=== PATIENT | female | born 1980 | race Caucasian/White ===

== ENCOUNTER 2017-02-07 16:37 | Inpatient (IN) | payer OTHER ==
[2017-02-07] MEDS ORDERED: OLIVE OIL 118 ML BTL MISC PRN (17:39)
[2017-02-07] MEDS ORDERED: LR 1,000 ML IV PRN (17:39)
[2017-02-07] MEDS ORDERED: EPSOM SALT 454 GM TP PRN (17:39)
[2017-02-07] MEDS ORDERED: OXYTOCIN/RINGERS LACTATE 1,000 ML IV PRN (17:39)
[2017-02-07] MEDS ORDERED: TERBUTALINE SULFATE 1 MG/ML VIAL IV PRN (17:39)
[2017-02-07 18:07] LABS: % IMMATURE GRANULYOCYTES 0.9 % (0.0-1.1); ABSOLUTE IMMATURE GRANULOCYTES 0.08 10^3/uL (0.00-0.10); ADD DIFF? NO; ADD MORPH? NO; ADD SCAN? NO; ATYPICAL LYMPHOCYTE FLAG 0 (0-99); FRAGMENT RBC FLAG 0 (0-99); HEMATOCRIT 38.5 % (38.0-47.0); HEMOGLOBIN 13.3 g/dL (12.6-16.3); LEFT SHIFT FLG 0 (0-99); LIPEMIA HEMOLYSIS FLAG 90 (0-99); MEAN CELL HEMOGLOBIN 31.1 pg (27.9-34.1); MEAN CELL HEMOGLOBIN CONCENTR. 34.5 g/dL (32.4-36.7); MEAN CELL VOLUME 90.2 fL (81.5-99.8); MEAN PLATELET VOLUME 9.7 fL (8.7-11.7); PLATELET CLUMPS FLAG 0 (0-99); PLATELET COUNT 240 10^3/uL (150-400); RED BLOOD CELL COUNT 4.27 10^6/uL (4.18-5.33); RED CELL DISTRIBUTION WIDTH 15.6 % (11.5-15.2)
--- NOTE | 2017-02-07 18:35 | GHP ---
[f rep st] HISTORY AND PHYSICAL DATE OF ADMISSION: 02/07/2017 ADMITTING DIAGNOSIS: Intrauterine at 38 and 1/7th weeks' gestation and in active labor. HISTORY OF PRESENT ILLNESS: The patient is a 36-year-old, 3, para 1-0-1-1, with a last mens trual period of 05/15/2016 and an EDC of 02/20/2017, which was confirmed by an 8-week ultrasound. T he patient has had good care at [facility] since registration at 8 weeks' gestati on. Her risk factors include advanced maternal age. She has had [facility] with normal Verifi, normal AFP and normal ultrasounds. She is Rh negative and positive for ant i-M antibodies. She did receive RhoGAM at 28 weeks. She has asthma that has been well controlled. She has a history of fibroids status post myomectomy in 2013. Has had successful vaginal delivery since. History of migraines and anemia. The patient reports contractions that began approximately midnight overnight and increasingly progre ssed over the course of the day of the . When she presented to Labor and Delivery, her current contractions have been 5-7 minutes apart, waxing and waning in intensity but consistent. No leakage of fluid. Minimal vaginal bleeding. Has had good movement. Upon examination today cervical exam is 5, 100% and -2 station and her contractions are strong and regular and she will be admitted for active labor and management. PAST OBSTETRICAL HISTORY: In November of 2013, she had a spontaneous . In November of 2014, she had a vaginal delivery of a viable female, 7 pounds 14 ounces. About 14 hours of labor of vaginal d elivery, she had an epidural, no complications and this is her third . PAST GYNECOLOGICAL HISTORY: She has a normal menstrual triad. Menarche at age 11. Intervals of 28 days, 5-8 days. This was a planned . She has no significant gynecological history except for known fibroids and had a myomectomy in 2013. She has no history of any abnormal Paps or STDs. PAST MEDICAL HISTORY: Significant for asthma which is exercise induced. Has been well controlled d uring this and she has a history of migraines about once a month, they are hormonal. PAST SURGICAL HISTORY: She has a history of the myomectomy. She had adenoidectomy and a pilonidal cyst removal. She had an ACL repair x2 and right knee surgery and she also had a melanoma removed i n April of 2015, so she has a history of melanoma. ALLERGIES: She is allergic to codeine, shellfish and Procardia, they all give her a rash. CURRENT MEDICATIONS: Include vitamins with DHA. LABS: She is O negative. Antibody positive for anti-M. RPR nonreactive. Rubella immune. Hepatit is negative. HIV negative. Cystic fibrosis, SMA, and fragile X negative. Pap normal. Gonorrhea a nd chlamydia normal. Verifi negative. AFP negative. 1-hour GTT 119. GBS is negative. SOCIAL HISTORY: She is , she lives with her , . She is a teacher at . he denies tobacco, alcohol, and drug use. FAMILY HISTORY: Patient is adopted, she does not know her family history. REVIEW OF SYSTEMS: A 10-point review of systems was performed and is negative except for labor cont ractions as mentioned above. OBJECTIVE: VITAL SIGNS: She is afebrile. Vital signs are stable. heart tones are 140s, denilson ctive, moderate variability, category 1. Contractions are every 4-6 minutes. Cervix is 5, 100%, +2 stations and her bag of lorenzana is intact. ASSESSMENT AND PLAN: A 36-year-old, 3, para 1-0-1-1, at 38 and 1/7th weeks' gestation in ac tive labor. The patient will be admitted for active labor management. She is considering an epidur al for pain control and we will check for spontaneous progression and cervical change. May offer BARBARA OM. /[id number]/MODL
[2017-02-07] MEDS ORDERED: LIDOCAINE 1% 300 MG/30 ML SDV ONE (18:58)
[2017-02-07] MEDS ORDERED: OLIVE OIL 118 ML BTL ONE (18:59)
[2017-02-07] MEDS ORDERED: OXYTOCIN 10 UNIT/ML VIAL ONE (18:59)
[2017-02-07] MEDS ORDERED: AMMONIA AROMATIC 1 EACH AMP IH ONE (18:59)
[2017-02-07] MEDS ORDERED: TERBUTALINE SULFATE 1 MG/ML VIAL ONE (18:59)
[2017-02-07] MEDS ORDERED: MISOPROSTOL 200 MCG TAB ONE (18:59)
[2017-02-07] MEDS ORDERED: fentaNYL 2MCG/ML/BUP 0.1% RTU 100 ML BAG EP ONE (19:21)
[2017-02-07] MEDS ORDERED: fentaNYL 100 MCG/2 ML INJ ONE (19:21)
[2017-02-07] MEDS ORDERED: PHENYLEPHRINE HCL 100 MCG/ML SYR ONE (19:22)
[2017-02-07] MEDS ORDERED: BUPIVACAINE 0.25% 30 ML SDV ONE (19:22)
[2017-02-07] MEDS ORDERED: fentaNYL 2MCG/ML/BUP 0.1% RTU 100 ML EP SCH (20:30)
[2017-02-07] MEDS ORDERED: LR 500 ML IV SCH (20:30)
[2017-02-07] MEDS ORDERED: NALOXONE HCL 0.4 MG/ML INJ IVP PRN (20:30)
[2017-02-07] MEDS ORDERED: PHENYLEPHRINE HCL 100 MCG/ML SYR IVP PRN (20:30)
--- NOTE | 2017-02-07 20:34 | PREANESOB ---
Obstetric Pre-Anesthesia Info - General Info NPO Start Time: 20:33 : 3 Para: 1 - Info Status: Full Term Monitors: External FHR Pattern: Reassuring - Labor Status Cervical Dilation per last OB SVE: 6 Indications for Labor Analgesia: Pain Control Labor Epidural: Yes, Proposed (Consent obtained. Epidural place without problems. Comfortable) Anesthesia Allergies/Adverse Reactions: Allergy/AdvReac Type Severity Reaction Status Date / Time codeine Allergy Verified 04/16/14 18:10 shellfish derived Allergy Verified 12/10/14 09:29 Home Medications: Medication Instructions Recorded 04/16/14 Calcium Carbonate [Tums 500MG (*)] 500 mg PO 12/09/14 Esomeprazole Magnesium [Nexium] 20 mg PO DAILY 12/09/14 Ibuprofen [Motrin (*)] 600 mg PO Q6 PRN #0 tab 12/12/14 Visit Medications: Generic Name Dose Route Start Last Admin Trade Name Freq PRN Reason Stop Dose Admin Lactated Ringer's 1,000 mls @ 0 mls/hr 02/07/17 17:39 Lr IV 08/06/17 17:38 PRN PRN SEE PROTOCOL CONDITIONS Protocol Per Protocol Oxytocin/Lactated Ringer's 1,000 mls @ 150 mls/hr 02/07/17 17:39 Pitocin 20 Units/Lr (Premix) IV PRN PRN Post- bleeding Ibuprofen 600 mg 02/07/17 17:39 Motrin PO 08/06/17 17:38 Q6HRS PRN post , inflammation Magnesium Sulfate 454 gm 02/07/17 17:39 Epsom Salt TP 08/06/17 17:38 PRN PRN perineal discomfort [place] Oil 118 ml 02/07/17 17:39 Sweet Oil MISC 08/06/17 17:38 ONCE PRN preneal massage Terbutaline Sulfate 0.25 mg 02/07/17 17:39 Brethine IV 08/06/17 17:38 ONCE PRN Tachysystole Discontinued Medications Generic Name Dose Route Start Last Admin Trade Name Freq PRN Reason Stop Dose Admin Ammonia (Aromatic Spirit) Confirm 02/07/17 18:59 Ammonia Aromatic Administered 02/07/17 19:00 Dose 1 each IH .STK-MED ONE Bupivacaine HCl Confirm 02/07/17 19:22 Sensorcaine 0.25% Sdv Administered 02/07/17 19:23 Dose 30 ml .ROUTE .STK-MED ONE Ephedrine Sulfate Confirm 02/07/17 18:59 Ephedrine Sulfate Administered 02/07/17 19:00 Dose 50 mg .ROUTE .STK-MED ONE Fentanyl Confirm 02/07/17 19:21 Sublimaze Administered 02/07/17 19:22 Dose 100 mcg .ROUTE .STK-MED ONE Fentanyl/Bupivacaine HCl Confirm 02/07/17 19:21 Fentanyl/Bupivacaine/Ns 2 Mcg/Ml 0.1% (Premix Administered 02/07/17 19:22 Dose 100 ml EP .STK-MED ONE Lidocaine HCl Confirm 02/07/17 18:58 Lidocaine Hcl 1% Administered 02/07/17 18:59 Dose 300 mg .ROUTE .STK-MED ONE Misoprostol Confirm 02/07/17 18:59 Cytotec Administered 02/07/17 19:00 Dose 800 mcg .ROUTE .STK-MED ONE [place] Oil Confirm 02/07/17 18:59 Sweet Oil Administered 02/07/17 19:00 Dose 118 ml .ROUTE .STK-MED ONE Oxytocin Confirm 02/07/17 18:59 Pitocin Administered 02/07/17 19:00 Dose 40 unit .ROUTE .STK-MED ONE Phenylephrine HCl Confirm 02/07/17 19:22 Neosynephrine Administered 02/07/17 19:23 Dose 1,000 mcg .ROUTE .STK-MED ONE Terbutaline Sulfate Confirm 02/07/17 18:59 Brethine Administered 02/07/17 19:00 Dose 1 mg .ROUTE .STK-MED ONE - Focused Exam Height/Weight (Nursing): Height 177.8 cm Weight 106.594 kg Labs: 02/07/17 17:50 Patient ABO/Rh O NEGATIVE 02/07/17 17:50
--- NOTE | 2017-02-07 21:08 | OBPROG ---
OBG Labor Progress Note Assessment/Plan: Assessment: 36 y/o @ 38 weeks in active labor Plan: AROM now and will observe closely. status is reassuring. 02/07/17 21:09 Subjective: Pt is now comfortable with her epidural. She was feeling some pelvic pressure immediately after epidural placement. Objective: 02/07/17 17:50 Patient ABO/Rh O NEGATIVE 02/07/17 17:50 - SVE Dilation (cm): 8 Effacement (%): 90 Station: -1 Edge Current Contraction Pattern: Regular (Q 2-4) FHR (bpm): 140 FHR Pattern Variability: Moderate FHR Category: 1 Membranes: AROM Amniotic Fluid Color: Clear - Procedures Non-surgical Procedures: Amniotomy (clear fluid) Oxytocin Orders Assessment - Pre-Induction/Augmentation Assessment Gestational Age: 38 week(s) and 1 day(s) ICD10 Worksheet Patient Problems: Problems Problem Status Onset (spontaneous vaginal delivery) Acute Spontaneous onset of labor Acute
[2017-02-07] MEDS ORDERED: SIMETHICONE 80 MG TAB CHEW PO PRN (22:59)
[2017-02-07] MEDS ORDERED: HYDROCORTISONE 0.5% CREAM TP PRN (22:59)
--- NOTE | 2017-02-07 23:03 | OBDEL ---
Info Type: Vaginal GBS+: No Indications for Delivery: Spontaneous Labor Vaginal Delivery - Labor and Delivery Onset of Contractions Date: 02/07/17 Onset of Contractions Time: 14:00 Onset of Contractions Type: Spontaneous Rupture of Membranes Date: 02/07/17 Rupture of Membranes Time: 21:00 Rupture of Membranes Type: Artificial Amniotic Fluid Color: Clear Dilation Complete Date: 02/07/17 Dilation Complete Time: 22:34 Placenta Delivery Date: 02/07/17 Placenta Delivery Time: 22:50 Total Hours of Labor: 8 Non-surgical Procedures: Amniotomy (clear fluid) Laceration: 1st Degree Repair: 3-0, Vicryl Vaginal Sponge Count Correct: Yes Vaginal Needle Count Correct: Yes Vaginal Sweep Performed: Yes EBL: 150 Delivery Events: None - Medications Labor Augmentation/Induction Methods Used: None [place] Data Edge Delivery Date: 02/07/17 Delivery Time: 22:46 RUCHI: 02/20/17 Gestational Age: 38 week(s) and 1 day(s) Sex of : Female Score (1 Min): 8 Score (5 Min): 9 ICD10 Worksheet Patient Problems: Problems Problem Status Onset (spontaneous vaginal delivery) Acute Spontaneous onset of labor Acute
[2017-02-08] MEDS: CALCIUM CARBONATE 500 MG CHEWABLE TAB PO PRN ×3 (03:45→20:30)
[2017-02-08] MEDS ORDERED: ceFAZolin 2 GM/DEXTROSE 100 ML IV ONE (06:00)
[2017-02-08] MEDS: IBUPROFEN 600 MG TAB PO PRN ×4 (06:07→18:01)
[2017-02-08] MEDS: ACETAMINOPHEN 325 MG TAB PO PRN ×3 (06:09→20:33)
[2017-02-08 09:11] VITALS: O2SAT 96
[2017-02-08] MEDS: DOCUSATE SODIUM 100 MG CAP PO PRN ×2 (09:28→20:30)
--- NOTE | 2017-02-08 10:51 | OBPP ---
Progress Note Assessment/Plan: Assessment: well pain well managed ff@u scant rubra lochia perineum approximated voiding without difficulty Plan:pp day 1 expectant management 02/08/17 10:48 Subjective: doing well. Denies difficulties. well. PAin well managed. Voiding without difficulty Objective: 02/07/17 17:50 Patient ABO/Rh O NEGATIVE 02/07/17 17:50 Temp Pulse Resp BP Pulse Ox 36.6 C 68 16 108/59 L 96 02/08/17 08:20 02/08/17 08:20 02/08/17 08:20 02/08/17 08:20 02/08/17 08:20 Uterine Position/Fundal Height: At Umbilicus Uterine Tone: Firm Physical Exam - Physical Exam General Appearance: WD/WN, alert, no apparent distress Abdomen: other (ff@u) Extremities: normal range of motion, Ruben's sign (negative bilaterally) DTR- Lower Extremities: Knee (R): 1+, Knee (L): 1+ (no clonus) Skin: normal color, warm/dry Neuro/Psych: no motor/sensory deficits, alert, normal mood/affect, oriented x 3
[2017-02-08 21:23] VITALS: PULSE 81
[2017-02-09] MEDS ORDERED: SUCROSE 1 EA UDL ONE (00:08)
[2017-02-09] MEDS: IBUPROFEN 600 MG TAB PO PRN ×3 (01:58→14:32)
[2017-02-09] MEDS: CALCIUM CARBONATE 500 MG CHEWABLE TAB PO PRN (02:15)
[2017-02-09] MEDS: DOCUSATE SODIUM 100 MG CAP PO PRN (08:29)
[2017-02-09 10:19] VITALS: BP 104/63; RESP 17; TEMP 97
--- NOTE | 2017-02-09 12:19 | OBPP ---
Progress Note Assessment/Plan: Assessment: 36 y/o PPD #1.5 s/p doing well. Plan: Pt is ready to d/c home today. Will give Rx Ibuprofen. Folow-up @ [facility] 4 and 6 weeks. 02/07/17 21:09 02/09/17 12:18 Subjective: Pt is doing well this am. She has min pain controlled with Ibuprofen. She is ambulating, voiding well and has min lochia. Breast feeding is going well and she has min nipple pain. They are ready to d/c home. Objective: 02/07/17 17:50 Patient ABO/Rh O NEGATIVE 02/07/17 17:50 Temp Pulse Resp BP Pulse Ox 36.1 C 81 17 104/63 96 02/09/17 10:16 02/08/17 20:00 02/09/17 10:16 02/09/17 10:16 02/09/17 10:16 Uterine Position/Fundal Height: Umbilicus -2 Uterine Tone: Firm Physical Exam - Physical Exam General Appearance: WD/WN, alert, no apparent distress Neck: non-tender, full range of motion, supple Respiratory: chest non-tender, lungs clear, normal breath sounds Cardiac/Chest: regular rate, rhythm Abdomen: normal bowel sounds Extremities: swelling (2+), Ruben's sign (neg)
--- NOTE | 2017-02-09 12:24 | OBGCSDC ---
General Delivery Information - General Info : 3 Para: 2 Abortions: 1 Delivery Physician/CNM: Mirta Urbina Admission Date: 02/20/17 Labs: Patient ABO/Rh O NEGATIVE 02/07/17 17:50 Hct 38.5 % (38.0-47.0) 02/07/17 17:50 Vaginal - Diagnosis Labor: Spontaneous Rupture of Membranes Type: Artificial Amniotic Fluid Color: Clear Laceration: 1st Degree Repair: 3-0, Vicryl Delivery Events: None - Operations/Procedures Non-surgical Procedures: Amniotomy (clear fluid) L&D Analgesia/Anesthesia Type: Epidural, Local - Hospital Course Antepartum: AMA, + anti M antibody, Rh neg s/p Rhogsm, Hx fibroids s/p myomectomy, migraines and anemia Intrapartum: Active labor, epidural, AROM, : normal pp course - Delivery Non-surgical Procedures: Amniotomy (clear fluid) L&D Analgesia/Anesthesia Type: Epidural, Local [place] Data Edge Delivery Date: 02/07/17 Delivery Time: 22:46 RUCHI: 02/20/17 Gestational Age: 38 week(s) and 3 day(s) Sex of Infant: Female [place] Weight (gm): 3104 g Score (1 Min): 9 Score (5 Min): 10 Discharge Information - Discharge Information Discharge Medications: Ibuprofen Instruction/Follow Up: Six Weeks Discharge Physician/ADELFOM: Mirta Urbina
== END 2017-02-09 15:30 | disposition home or self-care (01) | DRG 775 ==
LOC: FLD 16:37 → OBSVTOIN 16:37 → FOB 02-08 00:30
PROVIDERS: ADMIT Obstetrics & Gynecology; ATTEND Obstetrics & Gynecology
DX: O70.0 First degree perineal laceration during delivery (principal); O26.893 Other specified pregnancy related conditions, third trimester; O34.29 Maternal care due to uterine scar from other previous surgery; Z3A.38 38 weeks gestation of pregnancy; Z37.0 Single live birth
CPT/HCPCS: J2370; J2590; J3010; J3105

== ENCOUNTER → 2018-11-11 | Outpatient (CLI) | payer OTHER | LOC: BRMIMAGING 08:44 | PROVIDERS: ATTEND Obstetrics & Gynecology | DX: N63.14 Unspecified lump in the right breast, lower inner quadrant (principal) | CPT/HCPCS: 76641-PO ==

== ENCOUNTER → 2018-11-29 | Outpatient (CLI) | payer OTHER ==
[~2018-11-29] MED LIST: BUPIVACAINE 0.5% 30 ML SDV ONE; LIDOCAINE 1% 300 MG/30 ML SDV ONE
== END ==
LOC: FIMAGING 07:30
PROVIDERS: ATTEND Obstetrics & Gynecology
PROC: 0HBT3ZX Excision of Right Breast, Percutaneous Approach, Diagnostic (ICD-10-PCS; principal; 2018-11-29)
DX: D24.1 Benign neoplasm of right breast (principal); N60.11 Diffuse cystic mastopathy of right breast